=== PATIENT | female | born 1960 | race Caucasian/White ===

== ENCOUNTER → 2021-03-03 | Outpatient (CLI) | payer OTHER ==
[~2021-03-03] MED LIST: CALTRATE 600MG600 MG PO; CEFDINIR300 MG PO; CHLORTHALIDONE25 MG PO; COZAAR 50MG TAB50 MG GT; DECADRON6 MG PO; FERROUS SULFAT325 MG PO; HYDROXYZINE PAM25 MG PO; LEVOCETIRIZINE D5 MG PO; LOSARTAN POTAS100 MG PO; LOSARTAN POTASS50 MG PO; MAXI-TUSS AC L473 ML PO; METOPROLOL SUCC50 MG PO; PROTONIX40 MG PO; VENTOLIN HFA8 GM INH
== END ==
LOC: MAMO 09:39 → US 10:30
DX: R92.8 Other abnormal and inconclusive findings on diagnostic imaging of breast (principal); N60.01 Solitary cyst of right breast
CPT/HCPCS: 76641-RT; 77065